=== PATIENT | male | born 1950 | race Caucasian/White ===

== ENCOUNTER → 2016-11-25 | Outpatient (CLI) | payer BC, OTHER ==
--- NOTE | 2016-11-25 20:50 | REP ---
Multi parametric prostate MRI without and with IV gadolinium: History: Elevated PSA Comparisons: No comparison study TECHNIQUE: Using a phased array surface coil, small field of view imaging was acquired using T2-weighted scans in the axial, coronal, and sagittal imaging planes. Small field of view diffusion-weighted sequences are acquired. Small field of view axial T1-weighted scans are acquired dynamically after the intravenous administration of eight mL of ProHance. Prostate MRI findings: Cortical and medullary bone signal intensity are normal in the bony pelvis as visualized. No metastatic skeletal disease is seen. No pelvic adenopathy or mass lesion is observed. There is heterogeneous enlargement of the central portion of the prostate consistent with benign prostatic hypertrophy. Glandular dimensions are 4.4 x 4.4 x 4.5 cm. Glandular volume is calculated at 42.11 ml. Normal seminal vesicles are visible. The urinary bladder garrison are slightly trabeculated. Three lesions are identified. Lesion #1 is in the right base anterior transition zone and right mid anterior transition zone. It has a 1.48 ml volume with diameters of 2.0 x 1.1 x 1.3 cm. It is a discrete homogeneous low T2 signal intensity lesion confined to the anterior gland with no reduction in ADC and a type 3 enhancement curve. Clinically significant cancer is felt to be equivocal. Lesion #2 is in the left base anterior transition zone with an estimated volume of 0.91 ml, diameters of 1.5 x 1.0 x 1.0 cm. It has intermediate heterogeneous T2 signal intensity with intermediate diffusion weighted signal intensity characteristics and a type 3 dynamic contrast enhancement curve. Clinically significant cancer is felt to be equivocal. Lesion #3 is in the left apical lateral peripheral zone measuring 0.68 ml in volume, 1.7 x 0.4 x 1.0 cm in diameter. It has intermediate T2 signal intensity somewhat heterogeneously. There is no reduction in ADC and a type 2 enhancement curve is seen. Clinically significant cancer is felt to be unlikely. Impression: 1. No evidence of extraprostatic disease. Changes of BPH. 2. Three lesions are identified and submitted for consideration of ultrasound MR fusion directed needle biopsy procedure. Signed by Alvaro Mayo MD 11/26/2016 01:06 P
== END ==
LOC: M RAD 10:17
PROVIDERS: ATTEND Urology
DX: R97.20 Elevated prostate specific antigen [PSA] (principal)
CPT/HCPCS: 72197; A9576

== ENCOUNTER → 2017-02-03 | Outpatient (CLI) | payer BC, OTHER ==
[~2017-02-03] VITALS: Ht 175.3 cm; Wt 81.6 kg
[~2017-02-03] MED LIST: CLAR5TAB PO; LEVI20TA39 PO; NS 1,000 ML IV ONE; OMEP20CA3 PO; QNAS80AE
--- NOTE | 2017-02-03 09:37 | ROOR ---
Patient Name: Dennis Stuart Procedure Date: 02/03/2017 9:16 AM Date of : 1950 Age: 66 Room: [facility] Gender: Male Note Status: Finalized Procedure: Colonoscopy Indications: High risk colon cancer surveillance: Personal history of colonic polyps, Last colonoscopy: November 2011 Providers: Thomas GANT MD Referring MD: RITA CARNES MD Requesting Provider: Medicines: Monitored Anesthesia Care Complications: No immediate complications. Procedure: Pre-Anesthesia Assessment: - The heart rate, respiratory rate, oxygen saturations, blood pressure, adequacy of pulmonary ventilation, and response to care were monitored throughout the procedure. The Colonoscope was introduced through the anus and advanced to the cecum, identified by appendiceal orifice and ileocecal valve. The colonoscopy was performed without difficulty. The patient tolerated the procedure well. The quality of the bowel preparation was good. Findings: The perianal and digital rectal examinations were normal. A 4 mm polyp was found in the descending colon. The polyp was sessile. The polyp was removed with a cold snare. Resection and retrieval were complete. A few medium-mouthed diverticula were found in the sigmoid colon. Small Internal Hemorrhoids. The exam was otherwise without abnormality on direct and retroflexion views. Impression: - One 4 mm polyp in the descending colon, removed with a cold snare. Resected and retrieved. - Mild diverticulosis in the sigmoid colon. - Small Internal Hemorrhoids. - The examination was otherwise normal on direct and retroflexion views. Recommendation: - Repeat colonoscopy in 5 years for surveillance. Thomas Gant MD Thomas GANT MD 02/03/2017 9:37:32 AM This report has been signed electronically. Number of Addenda: 0 Note Initiated On: 02/03/2017 9:16 AM Estimated Blood Loss: Estimated blood loss: none.
[2017-02-03 09:55] VITALS: BP 110/66
== END | disposition home or self-care (01) ==
LOC: M OPP 07:57
PROVIDERS: ATTEND Internal Medicine Gastroenterology
DX: Z12.11 Encounter for screening for malignant neoplasm of colon (principal); D12.4 Benign neoplasm of descending colon; K57.30 Diverticulosis of large intestine without perforation or abscess without bleeding; K64.8 Other hemorrhoids; Z86.010 Personal history of colon polyps; R12 Heartburn; Z88.0 Allergy status to penicillin; Z79.899 Other long term (current) drug therapy

== ENCOUNTER → 2017-02-17 | Outpatient (REF) | payer BC, OTHER ==
[~2017-02-17] MED LIST changes: -NS 1,000 ML IV ONE
[2017-02-17 17:46] LABS: IMMUNOGLOBULIN M 64.4 MG/DL (40-230)
[2017-02-20 14:18] LABS: ALPHA 1 ANTITRYPSIN 149 mg/dL (90-200); D001-IgE D pteronyssinus <0.10 kU/L (Class 0); E001-IgE Cat Epith/Dander 1.25 kU/L (Class II); E005-IgE Dog Dander 0.37 kU/L (Class I); G002-IgE Bermuda Grass < 0.10 kU/L (Class 0); G008-IgE Kentucky Bluegrass < 0.10 kU/L (Class 0); M001-IgE Penicillium chrysogen < 0.10 kU/L (Class 0); M002 IgE Cladosporium herbaru < 0.10 kU/L (Class 0); M003 IgE Aspergillus fumigatu < 0.10 kU/L (Class 0); M006-IgE Alternaria alternata 1.81 kU/L (Class III); T001-IgE Maple/Box Elder < 0.10 kU/L (Class 0); T003-IgE Common Silver Birch < 0.10 kU/L (Class 0); T007-IgE Oak, White < 0.10 kU/L (Class 0); T008-IgE Elm, American < 0.10 kU/L (Class 0); T015-IgE Ash, White < 0.10 kU/L (Class 0); T041-IgE Hickory, White < 0.10 kU/L (Class 0); W001-IgE Ragweed, Short < 0.10 kU/L (Class 0); W009-IgE Plantain, English < 0.10 kU/L (Class 0); W014-IgE Pigweed, Rough < 0.10 kU/L (Class 0); W018-IgE Sheep Sorrel < 0.10 kU/L (Class 0)
== END ==
LOC: M LABDRAW1 16:32
PROVIDERS: ATTEND Allergy & Immunology
DX: J30.1 Allergic rhinitis due to pollen (principal); J30.81 Allergic rhinitis due to animal (cat) (dog) hair and dander; J32.0 Chronic maxillary sinusitis; R05 Cough

== ENCOUNTER → 2017-06-27 | Outpatient (REF) | payer OTHER | LOC: M LABDRAW1 09:10 | PROVIDERS: ATTEND Emergency Medicine | DX: E78.2 Mixed hyperlipidemia (principal); E55.9 Vitamin D deficiency, unspecified ==

== ENCOUNTER → 2017-08-29 | Outpatient (REF) | payer OTHER | LOC: M LABDRAW1 13:15 | PROVIDERS: ATTEND Urology | DX: R97.20 Elevated prostate specific antigen [PSA] (principal) ==

== ENCOUNTER → 2018-01-26 | Outpatient (REF) | payer OTHER ==
[2018-01-26 14:17] LABS: PROSTATIC SPECIFIC AG MONITOR 3.14 NG/ML (< 4.0)
== END ==
LOC: M LABDRAW1 09:00
DX: R97.20 Elevated prostate specific antigen [PSA] (principal)

== ENCOUNTER → 2018-06-17 | Outpatient (REF) | payer OTHER ==
[2018-06-17 12:33] LABS: CHOLESTEROL LEVEL 181 MG/DL (<200); CHOLESTEROL RISK RATIO 4.641 (<5); GLUCOSE, FASTING 96 MG/DL (70-100); HDL CHOLESTEROL 39 MG/DL (>40); LDL CHOLESTEROL 123 MG/DL (<100); NON-HDL-C 142 MG/DL; TOTAL 25(OH) VITAMIN D 39.5 NG/ML (30.0-100.0); TRIGLYCERIDES LEVEL 95 MG/DL (<150)
== END ==
LOC: M LABDRAW1 11:00
DX: E78.2 Mixed hyperlipidemia (principal); E55.9 Vitamin D deficiency, unspecified

== ENCOUNTER → 2018-08-04 | Outpatient (REF) | payer OTHER ==
[2018-08-08 00:25] LABS: PSA TOTAL 2.6 ng/mL (0.0-4.0)
== END ==
LOC: M LABDRAW1 15:45
DX: R97.20 Elevated prostate specific antigen [PSA] (principal)
CPT/HCPCS: 84154

== ENCOUNTER → 2019-04-05 | Outpatient (REF) | payer OTHER ==
[~2019-04-05] MED LIST changes: -OMEP20CA3 PO; +OMEP20CA4 PO
[2019-04-05 16:45] LABS: IMMUNOGLOBULIN M 64.7 MG/DL (40-230)
[2019-04-10 14:09] LABS: D001-IgE D pteronyssinus 0.12 kU/L (Class 0/I); E001-IgE Cat Epith/Dander 1.62 kU/L (Class III); E005-IgE Dog Dander 0.55 kU/L (Class I); F002-IgE Milk < 0.10 kU/L (Class 0); F004-IgE Wheat < 0.10 kU/L (Class 0); F013-IgE Peanut < 0.10 kU/L (Class 0); F014-IgE Soybean < 0.10 kU/L (Class 0); F026-IgE Pork 0.32 kU/L (Class I); F027-IgE Beef < 0.10 kU/L (Class 0); F245-IgE Egg, Whole < 0.10 kU/L (Class 0); FX02-IgE Food Mix (Sea Foods) Negative (.); G002-IgE Bermuda Grass < 0.10 kU/L (Class 0); G008-IgE Kentucky Bluegrass < 0.10 kU/L (Class 0); M001-IgE Penicillium chrysogen < 0.10 kU/L (Class 0); M002 IgE Cladosporium herbaru < 0.10 kU/L (Class 0); M003 IgE Aspergillus fumigatu < 0.10 kU/L (Class 0); M006-IgE Alternaria alternata 1.46 kU/L (Class III); T001-IgE Maple/Box Elder < 0.10 kU/L (Class 0); T003-IgE Common Silver Birch < 0.10 kU/L (Class 0); T006-IgE Cedar, Mountain 0.14 kU/L (Class 0/I); T007-IgE Oak, White < 0.10 kU/L (Class 0); T008-IgE Elm, American < 0.10 kU/L (Class 0); T015-IgE Ash, White < 0.10 kU/L (Class 0); T041-IgE Hickory, White < 0.10 kU/L (Class 0); T070-IgE White Mulberry < 0.10 kU/L (Class 0); W001-IgE Ragweed, Short < 0.10 kU/L (Class 0); W009-IgE Plantain, English < 0.10 kU/L (Class 0); W014-IgE Pigweed, Rough < 0.10 kU/L (Class 0); W018-IgE Sheep Sorrel < 0.10 kU/L (Class 0)
== END ==
LOC: M LABDRAW1 13:27
PROVIDERS: ATTEND Nurse Practitioner Family
DX: J30.1 Allergic rhinitis due to pollen (principal); J30.81 Allergic rhinitis due to animal (cat) (dog) hair and dander; J30.89 Other allergic rhinitis

== ENCOUNTER 2019-06-09 11:48 | Emergency (ER) | payer BC, OTHER ==
[~2019-06-09] VITALS: Ht 175.3 cm; Wt 82.2 kg
[2019-06-09] MEDS ORDERED: MULTCAP PO (11:54)
[2019-06-09] MEDS ORDERED: CHOL100029 PO (11:54)
[2019-06-09] MEDS ORDERED: TETRACAINE 0.5% OPHTH SOLN 4ML OU ONE (13:15)
[2019-06-09 14:10] VITALS: BP 125/65
== END 2019-06-09 14:21 | disposition home or self-care (01) ==
LOC: M ED 11:48
DX: H43.391 Other vitreous opacities, right eye (principal); Z79.899 Other long term (current) drug therapy; Z88.0 Allergy status to penicillin

== ENCOUNTER → 2019-06-14 | Outpatient (REF) | payer OTHER ==
[~2019-06-14] MED LIST changes: +CHOL100029 PO; +MULTCAP PO; +OMEP1CAP73 PO; -OMEP20CA4 PO
[2019-06-14 13:49] LABS: FREE T4 1.06 NG/DL (0.76-1.46); FREE THYROXINE INDEX 3.5 % (1.4-3.8); THYROID STIMULATING HORMONE 1.45 uIU/ML (0.358-3.740); THYROXINE (T4) 10.1 UG/DL (4.5-12.0)
[2019-06-14 13:53] LABS: TOTAL T3 124.1 NG/DL (60.0-181.0)
== END ==
LOC: M LABDRAW1 13:17
PROVIDERS: ATTEND Ophthalmology
DX: H43.811 Vitreous degeneration, right eye (principal)

== ENCOUNTER → 2019-07-05 | Outpatient (REF) | payer OTHER ==
[~2019-07-05] MED LIST changes: -OMEP1CAP73 PO; +OMEP20CA4 PO
[2019-07-05 12:30] LABS: ALBUMIN 3.5 GM/DL (3.2-5.2); ALT/SGPT 23 U/L (12-78); BILIRUBIN,TOTAL 0.4 MG/DL (0.2-1.0); BLOOD UREA NITROGEN 15 MG/DL (7-18); CALCIUM LEVEL 8.2 MG/DL (8.8-10.2); CARBON DIOXIDE LEVEL 28 MEQ/L (21-32); CHLORIDE LEVEL 107 MEQ/L (98-107); CHOLESTEROL LEVEL 172 MG/DL (<200); CHOLESTEROL RISK RATIO 4.095 (<5); CREATININE FOR GFR 1.24 MG/DL (0.70-1.30); GLOMERULAR FILTRATION RATE > 60.0 (>49); GLUCOSE, FASTING 93 MG/DL (70-100); HDL CHOLESTEROL 42 MG/DL (>40); LDL CHOLESTEROL 112 MG/DL (<100); NON-HDL-C 130 MG/DL; POTASSIUM SERUM 4.4 MEQ/L (3.5-5.1); SODIUM LEVEL 141 MEQ/L (136-145); TOTAL PROTEIN 6.5 GM/DL (6.4-8.2); TRIGLYCERIDES LEVEL 90 MG/DL (<150)
[2019-07-05 12:38] LABS: TOTAL 25(OH) VITAMIN D 56.3 NG/ML (30.0-100.0)
== END ==
LOC: M LABDRAW1 11:48
PROVIDERS: ATTEND Physician Assistant
DX: E78.2 Mixed hyperlipidemia (principal); E55.9 Vitamin D deficiency, unspecified

== ENCOUNTER → 2019-08-11 | Outpatient (REF) | payer OTHER | LOC: M LABDRAW1 11:41 | PROVIDERS: ATTEND Urology | DX: R97.20 Elevated prostate specific antigen [PSA] (principal) ==

== ENCOUNTER → 2020-07-13 | Outpatient (CLI) | payer OTHER ==
[~2020-07-13] MED LIST changes: +OMEP1CAP73 PO; -OMEP20CA4 PO
[2020-07-13 17:45] LABS: FREE THYROXINE INDEX 3.4 % (1.4-3.8); THYROID STIMULATING HORMONE 1.24 uIU/ML (0.358-3.740); THYROXINE (T4) 9.4 UG/DL (4.5-12.0)
== END ==
LOC: M PLALAB 14:01
PROVIDERS: ATTEND Ophthalmology
DX: M35.00 Sjogren syndrome, unspecified (principal)